=== PATIENT | male | born 1990 | race Caucasian/White ===

== ENCOUNTER 2022-05-03 01:50 | Emergency (ER) | payer OTHER ==
[~2022-05-03] VITALS: Ht 180.3 cm; Wt 83.9 kg
[2022-05-03 01:53] VITALS: BP 128/71
--- NOTE | 2022-05-03 01:53 | NUR ---
Dr. Craig examining patient.
--- NOTE | 2022-05-03 01:53 | NUR ---
SHU CHP TAKEN TO A Addendum: 05/03/22 at 0156 by SANDRA TAKEN TO CHAIR [place]
--- NOTE | 2022-05-03 02:06 | NUR ---
PATIENT BIB [facility] POLICE DEPT. PATIENT EXAMINED BY DR. JAMA. PATIENT MEDICALLY CLEARED AND RELEASED IN CUSTODY IN STABLE CONDITION. ORIGINAL PRE-BOOK FORM GIVEN TO OFFICER #[id number].
== END 2022-05-03 02:06 ==
LOC: MED 01:50
DX: Z02.89 Encounter for other administrative examinations (principal); V89.2XXA Person injured in unspecified motor-vehicle accident, traffic, initial encounter; Y93.89 Activity, other specified; Y92.89 Other specified places as the place of occurrence of the external cause; Y99.8 Other external cause status
CPT/HCPCS: 99283